=== PATIENT | male | born 1990 | race Caucasian/White ===

== ENCOUNTER 2023-10-26 09:24 | Emergency (ER) | payer OTHER ==
[2023-10-26] MEDS ORDERED: Morphine 4 MG/ML VIAL ONE ×2 (10:04→11:53)
== END 2023-10-26 12:02 | disposition home or self-care (01) ==
LOC: CSHERS 09:24
DX: M54.41 Lumbago with sciatica, right side (principal)
CPT/HCPCS: 96372; 99283; J2270